=== PATIENT | female | born 1970 | race Caucasian/White ===

== ENCOUNTER 2022-04-30 11:33 | Emergency (ER) | payer OTHER ==
[~2022-04-30] VITALS: Ht 152.4 cm; Wt 63.6 kg
[2022-04-30 11:41] VITALS: TEMP 98.2
[2022-04-30] MEDS ORDERED: AMOXICILLIN 8751 TAB PO (11:45)
[2022-04-30] MEDS ORDERED: PRINIVIL10 MG PO (11:46)
[2022-04-30] MEDS ORDERED: CLARITIN 1010 MG/TAB PO (11:46)
[2022-04-30 12:39] LABS: CALCIUM 9.6 mg/dL (8.4-10.2); CREATININE, serum 0.82 mg/dL (0.57-1.11)
[2022-04-30] MEDS ORDERED: NORCO 325 MG-51 TAB PO (13:12)
[2022-04-30 13:26] VITALS: BP 177/95; PULSE 81
== END 2022-04-30 13:28 | disposition home or self-care (01) ==
LOC: COL.ER 11:33
PROVIDERS: Emergency Medicine
DX: K04.7 Periapical abscess without sinus (principal); K02.9 Dental caries, unspecified; Z28.310 Unvaccinated for COVID-19
CPT/HCPCS: J2270; J2405; Q9967